=== PATIENT | female | born 1985 | race Caucasian/White ===

== ENCOUNTER 2020-08-06 13:54 | Emergency (ER) | payer SELFPAY ==
[~2020-08-06] VITALS: Ht 157 cm; Wt 61.1 kg
[2020-08-06] MEDS ORDERED: ONDANSETRON 4 MG (ZOFRAN) ORAL DISSOLVE TAB ONE (14:02)
[2020-08-06] MEDS ORDERED: ONDANSETRON 4 MG (ZOFRAN) ORAL DISSOLVE TAB PO STA (14:14)
[2020-08-06] MEDS ORDERED: NS IV 1000 ML 1,000 ML IV SCH (14:15)
[2020-08-06 14:24] LABS: HEMATOCRIT 41 % (35-52); HEMOGLOBIN 13.7 G/DL (11.5-16.0); MEAN CORPUSCULAR HEMOGLOBIN 32 PG (25-34); MEAN CORPUSCULAR VOLUME 95 FL (80-99); WHITE BLOOD COUNT 9.8 10^3/uL (4.3-11.0)
[2020-08-06 14:25] LABS: MEAN CORPUSCULAR HGB CONC 34 G/DL (32-36); MEAN PLATELET VOLUME 10.3 FL (7.4-10.4); NEUTROPHILS % (AUTO) 60 % (42-75); PLATELET COUNT 283 10^3/uL (130-400)
[2020-08-06 14:26] LABS: BASOPHILS % (AUTO) 0 % (0-10); EOSINOPHILS % (AUTO) 1 % (0-10); LYMPHOCYTES % (AUTO) 31 % (12-44); MONOCYTES % (AUTO) 8 % (0-12); NEUTROPHILS # (AUTO) 5.9 X 10^3 (1.8-7.8)
[2020-08-06 14:27] LABS: EOSINOPHILS # (AUTO) 0.1 10^3/uL (0.0-0.3); MONOCYTES # (AUTO) 0.7 X 10^3 (0.0-1.0)
[2020-08-06 14:32] LABS: BACTERIA,URINE NEGATIVE /HPF; BILIRUBIN,URINE NEGATIVE (NEGATIVE); CLARITY,URINE CLEAR; COLOR,URINE PALE YELLOW; GLUCOSE, URINE (UA) NEGATIVE (NEGATIVE); KETONES,URINE NEGATIVE (NEGATIVE); LEUKOCYTE ESTERASE ,URINE NEGATIVE (NEGATIVE); NITRITE,URINE NEGATIVE (NEGATIVE); PROTEIN,URINE NEGATIVE (NEGATIVE); SQUAMOUS EPITHELIAL CELL,UR RARE /HPF; WBC,URINE RARE /HPF
--- NOTE | 2020-08-06 14:33 | ED GI ---
General Chief Complaint: Abdominal/GI Problems Stated Complaint: SUPRAPUBIC PAIN Nursing Triage Note: Sent from urgent care for lower abdominal pain rated at a 7/10 and described as severe cramping. Has hx of IBS and ovarian cyst. Has had several loose bowel movements that have not affected symptoms. Had KUB and UA at urgent care that were normal, HCG negative. Took tylenol at 1130 this morning without relief. Took ibuprofen early this morning. Sepsis Screen: No Definite Risk Source of Information: Patient History of Present Illness Date Seen by Provider: Aug 06, 2020 Time Seen by Provider: 14:28 Initial Comments 33-year-old female presents with nausea vomiting and diarrhea which began this morning. History of irritable bowel syndrome. Seen at urgent care and had a urinalysis as well as a KUB of her abdomen and a negative hCG. She is taking Tylenol Motrin without relief. Denies any sick contacts, fever or chills. States she felt well yesterday with no unusual food consumed. Denies any blood in her stool. Allergies and Home Medications Allergies Coded Allergies: No Known Drug Allergies (Unverified , 08/06/20) Patient Home Medication List Home Medication List Reviewed: Yes Review of Systems Review of Systems Constitutional: No dizziness, No fever; malaise; No weakness Respiratory: Denies Cough, Denies Shortness of Air Cardiovascular: Denies Chest Pain, Denies Edema Gastrointestinal: See HPI, Abdominal Pain (cramping), Diarrhea, Nausea, Vomiting Musculoskeletal: No back pain, No joint pain Skin: No change in color, No rash Past [id number] Hx Past Med/Social Hx: Reviewed Nursing Past Med/Soc Hx Patient Social History Alcohol Use: Occasionally Uses Recreational Drug Use: No Smoking Status: Current Everyday Smoker Type Used: Cigarettes 2nd Hand Smoke Exposure: Yes Recent Foreign Travel: No Contact w/Someone Who Travel: No Recent Infectious Disease Expo: No Recent Hopitalizations: No Seasonal Allergies Seasonal Allergies: No Past Medical History Surgeries: Yes Hysterectomy Respiratory: No Cardiac: No Neurological: No Female Reproductive Disorders: Ovarian Cyst Genitourinary: No Gastrointestinal: Yes Irritable Bowel Musculoskeletal: No Endocrine: No HEENT: No Cancer: No Psychosocial: No Integumentary: No Physical Exam Vital Signs Vital Signs - First Documented 08/06/20 14:01 Temp 37.3 Pulse 104 Resp 16 B/P (MAP) 145/84 (104) Pulse Ox 99 Capillary Refill : Less Than 3 Seconds Height/Weight/BMI Height: '" Weight: lbs. oz. kg; 24.00 BMI Method: General Appearance: WD/WN, no apparent distress Respiratory: chest non-tender, lungs clear Cardiovascular: regular rate, rhythm, no edema Gastrointestinal: normal bowel sounds, non tender, soft, no organomegaly, no pulsatile mass Neurologic/Psychiatric: alert, normal mood/affect, oriented x 3 Skin: normal color, warm/dry Progress/Results/Core Measures Results/Orders Lab Results Laboratory Tests Test 08/06/20 14:00 08/06/20 14:15 Range/Units Urine Color PALE YELLOW Urine Clarity CLEAR Urine pH 6.0 5-9 Urine Specific [place] <=1.005 1.016-1.022 Urine Protein NEGATIVE NEGATIVE Urine Glucose (UA) NEGATIVE NEGATIVE Urine Ketones NEGATIVE NEGATIVE Urine Nitrite NEGATIVE NEGATIVE Urine Bilirubin NEGATIVE NEGATIVE Urine Urobilinogen 0.2 < = 1.0 MG/DL Urine Leukocyte Esterase NEGATIVE NEGATIVE Urine RBC (Auto) NEGATIVE NEGATIVE Urine RBC NONE /HPF Urine WBC RARE /HPF Urine Squamous Epithelial Cells RARE /HPF Urine Crystals NONE /LPF Urine Bacteria NEGATIVE /HPF Urine Casts NONE /LPF Urine Mucus NEGATIVE /LPF Urine Culture Indicated NO Urine Test NEGATIVE NEGATIVE White Blood Count 9.8 4.3-11.0 10^3/uL Red Blood Count 4.28 L 4.35-5.85 10^6/uL Hemoglobin 13.7 11.5-16.0 G/DL Hematocrit 41 35-52 % Mean Corpuscular Volume 95 80-99 FL Mean Corpuscular Hemoglobin 32 25-34 PG Mean Corpuscular Hemoglobin Concent 34 32-36 G/DL Red Cell Distribution Width 12.2 10.0-14.5 % Platelet Count 283 130-400 10^3/uL Mean Platelet Volume 10.3 7.4-10.4 FL Immature Granulocyte % (Auto) 0 % Neutrophils (%) (Auto) 60 42-75 % Lymphocytes (%) (Auto) 31 12-44 % Monocytes (%) (Auto) 8 0-12 % Eosinophils (%) (Auto) 1 0-10 % Basophils (%) (Auto) 0 0-10 % Neutrophils # (Auto) 5.9 1.8-7.8 X 10^3 Lymphocytes # (Auto) 3.0 1.0-4.0 X 10^3 Monocytes # (Auto) 0.7 0.0-1.0 X 10^3 Eosinophils # (Auto) 0.1 0.0-0.3 10^3/uL Basophils # (Auto) 0.0 0.0-0.1 10^3/uL Immature Granulocyte # (Auto) 0.0 0.0-0.1 10^3/uL Sodium Level 142 135-145 MMOL/L Potassium Level 3.5 L 3.6-5.0 MMOL/L Chloride Level 104 98-107 MMOL/L Carbon Dioxide Level 24 21-32 MMOL/L Anion Gap 14 5-14 MMOL/L Blood Urea Nitrogen 10 7-18 MG/DL Creatinine 0.72 0.60-1.30 MG/DL Estimat Glomerular Filtration Rate > 60 BUN/Creatinine Ratio 14 Glucose Level 84 70-105 MG/DL Calcium Level 9.6 8.5-10.1 MG/DL Corrected Calcium 8.5-10.1 MG/DL Total Bilirubin 0.3 0.1-1.0 MG/DL Aspartate Amino Transf (AST/SGOT) 15 5-34 U/L Alanine Aminotransferase (ALT/SGPT) 11 0-55 U/L Alkaline Phosphatase 47 40-136 U/L Total Protein 7.8 6.4-8.2 GM/DL Albumin 4.9 H 3.2-4.5 GM/DL Lipase 18 8-78 U/L My Orders Orders - ROVENSTINE,YULY L DO Ondansetron Oral Dissolve Tab (Zofran (08/06/20 14:02) Ed Iv/Invasive Line Start (08/06/20 14:14) Cbc With Automated Diff (08/06/20 14:14) Comprehensive Metabolic Panel (08/06/20 14:14) Lipase (08/06/20 14:14) Urinalysis (08/06/20 14:14) Hcg,Qualitative Urine (08/06/20 14:14) Ns Iv 1000 Ml (Sodium Chloride 0.9%) (08/06/20 14:15) Ondansetron Oral Dissolve Tab (Zofran (08/06/20 14:14) Vital Signs/I&O 08/06/20 14:01 Temp 37.3 Pulse 104 Resp 16 B/P (MAP) 145/84 (104) Pulse Ox 99 Blood Pressure Mean: 104 Departure Impression Primary Impression: Gastroenteritis Disposition: 01 HOME, SELF-CARE Condition: Stable Departure-Patient Inst. Decision time for Depature: 15:01 Referrals: DOROTHEA HOPKINS MD (PCP/Family) Primary Care Physician Patient Instructions: Viral Gastroenteritis, Adult (DC) Add. Discharge Instructions: Follow up with your PCP in 5 to 7 days if not improving, sooner if worse. All discharge instructions reviewed with patient and/or family. Voiced understanding. Scripts Ondansetron (Ondansetron Odt) 4 Mg Tab.rapdis 4 MG PO TID for Nausea, #10 TAB Prov: YULY VIVEROS DO 08/06/20 Hyoscyamine Sulfate (Levsin-Sl) 0.125 Mg Tab.subl 0.125 MG SL Q4H, #10 TAB 0 Refills Prov: YULY VIVEROS DO 08/06/20 Work/School Note: School/Childcare Release, Date Seen in the Emergency Department: Aug 06, 2020 Time Dismissed from Emergency Department: 15:06 Return to School: Aug 11, 2020 Work Release Form Date Seen in the Emergency Department: Aug 06, 2020 Return to Work: Aug 09, 2020 Restrictions: No Restrictions YULY VIVEROS DO Aug 06, 2020 14:32
[2020-08-06 14:57] LABS: BILIRUBIN,TOTAL 0.3 MG/DL (0.1-1.0); BUN/CREATININE RATIO 14; CALCIUM 9.6 MG/DL (8.5-10.1); CARBON DIOXIDE 24 MMOL/L (21-32); CHLORIDE 104 MMOL/L (98-107); CREATININE SERUM 0.72 MG/DL (0.60-1.30); GFR ESTIMATED > 60; GLUCOSE 84 MG/DL (70-105); POTASSIUM 3.5 MMOL/L (3.6-5.0); SODIUM 142 MMOL/L (135-145)
[2020-08-06 14:58] LABS: ALANINE AMINOTRANSFERASE 11 U/L (0-55); ALBUMIN 4.9 GM/DL (3.2-4.5); ALKALINE PHOSPHATASE 47 U/L (40-136); LIPASE 18 U/L (8-78); TOTAL PROTEIN 7.8 GM/DL (6.4-8.2)
[2020-08-06] MEDS ORDERED: ONDA4TAB11 PO (15:05)
[2020-08-06] MEDS ORDERED: HYOS0.1283 SL (15:05)
[2020-08-06 15:27] VITALS: BP 129/96
== END 2020-08-06 15:27 | disposition home or self-care (01) ==
LOC: EDUNIT# 13:54 → ER FS 13:55
DX: K52.9 Noninfective gastroenteritis and colitis, unspecified (principal); F17.210 Nicotine dependence, cigarettes, uncomplicated
CPT/HCPCS: 36415; 80053; 81000; 83690; 84703; 85025